=== PATIENT | female | born 1935 | race Two or more races ===

== ENCOUNTER 2023-07-24 17:50 | Inpatient (IN) | payer MEDICARE, OTHER ==
[~2023-07-24] VITALS: Ht 160 cm; Wt 63.2 kg
[2023-07-24 19:01] LABS: Basophils # (auto) 0 10 ^3/uL (0-0.2); Eosinophils # (auto) 0 10 ^3/uL (0-0.8); Hematocrit 33.1 % (36.0-46.0); Lymphocytes # (auto) 0.4 10 ^3/uL (0.4-5.4); Lymphocytes % (auto) 1.8 % (10.0-50.0); Neutrophils # (auto) 17.6 10 ^3/uL (1.6-8.6); Red Blood Cells 4.12 10^6/uL (4.0-5.20)
[2023-07-24 19:03] LABS: Basophils % (auto) 0.2 % (0.0-2.0); Hemoglobin 10.9 g/dL (12.2-16.2); Mean Corpuscular Hemoglobin 26.5 pg (28.0-32.0); Mean Corpuscular Volume 80.5 fL (80.0-100.0); Monocytes # (auto) 2.8 10 ^3/uL (0-1.3); Monocytes % (auto) 13.3 % (0.0-12.0); Neutrophils % (auto) 84.7 % (37.0-80.0); Red Cell Distribution Width 14.7 % (11.8-14.3); White Blood Cell 20.7 10^3/uL (4.4-10.8)
[2023-07-24 19:16] LABS: INR 1.02 (0.9-1.15); Partial Thromboplastin Time 27.5 SEC (24.5-34.5); Prothrombin Time 10.7 sec (9.3-11.8)
[2023-07-24 19:21] LABS: Alanine Aminotransferase 32 U/L (7-40); Albumin 3.2 g/dL (3.2-4.8); Alkaline Phosphatase 123 U/L (46-116); Anion Gap 4 (5-15); Aspartate Aminotransferase 35 U/L (13-40); BUN/Creatinine Ratio 26.2 (10.0-20.0); Bilirubin, Total 1.2 mg/dL (0.2-1.0); Blood Urea Nitrogen 16 mg/dL (9-23); Calcium 8.3 mg/dL (8.7-10.4); Carbon Dioxide 27 mmol/L (20-30); Chloride 99 mmol/L (98-107); Glucose 126 mg/dL (74-106); Potassium 4.2 mmol/L (3.5-5.1); Sodium 130 mmol/L (136-145); Total Protein 5.2 g/dL (5.7-8.2)
[2023-07-24] MEDS: cefTRIAXone 1GM/50ML D5W 50 ML IV ONE (20:00)
[2023-07-24] MEDS: IOHEXOL 350 MG/ML 100ML IJ ONE ×2 (20:42)
[2023-07-24] MEDS: AZITHROMYCIN 500MG/ 250ML 250 ML IV ONE (20:46)
[2023-07-24 22:30] VITALS: PULSE 107; RESP 20; O2SAT 97
[2023-07-24] MEDS: ASPirin 81 mg TAB PO ONE (22:45)
[2023-07-24] MEDS ORDERED: ALBUTEROL SULF 2.5 MG/0.5ML(0.5%) NEB SOLN NEB PRN (23:00)
[2023-07-24] MEDS ORDERED: ONDANSETRON HCL 4 MG/2 ML VIAL IV PRN (23:00)
[2023-07-24] MEDS ORDERED: ACETAMINOPHEN 325 MG TAB PO PRN (23:00)
[2023-07-24 23:16] LABS: Urine Bacteria FEW /hpf (None Seen); Urine Blood 3+ /uL (Negative); Urine Clarity HAZY (Clear); Urine Color Yellow (Yellow); Urine Protein, UAD 1+ (Negative); Urine Specific Gravity > 1.050 (1.001-1.035); Urine WBC 28 /hpf (0 - 5); Urine pH 6.5 (5.0-8.0)
[2023-07-24 23:52] VITALS: BP 140/73; PULSE 107; RESP 20; TEMP 98.2; O2SAT 97
[2023-07-25] VITALS (10 sets, daily range): BP systolic 109–152; BP diastolic 51–90; PULSE 77–114; RESP 14–20; TEMP 97.3–98.2; O2SAT 93–100
[2023-07-25] MEDS ORDERED: APIX2.5T PO (06:25)
[2023-07-25] MEDS ORDERED: ASPI-543 PO (06:25)
[2023-07-25] MEDS ORDERED: OXYB5SOL PO (06:27)
[2023-07-25] MEDS ORDERED: METO25TA93 PO (06:27)
[2023-07-25] MEDS ORDERED: OMEP-434 PO (06:29)
[2023-07-25 07:19] LABS: Basophils # (auto) 0 10 ^3/uL (0-0.2); Eosinophils # (auto) 0 10 ^3/uL (0-0.8); Hemoglobin 10.4 g/dL (12.2-16.2); Lymphocytes # (auto) 0.6 10 ^3/uL (0.4-5.4); Lymphocytes % (auto) 3.6 % (10.0-50.0)
[2023-07-25 07:20] LABS: Basophils % (auto) 0.2 % (0.0-2.0); Hematocrit 31.9 % (36.0-46.0); Mean Corpuscular Hemoglobin 26.4 pg (28.0-32.0); Mean Corpuscular Hgb Conc. 32.4 g/dL (32.0-36.0); Mean Corpuscular Volume 81.4 fL (80.0-100.0); Monocytes # (auto) 2.5 10 ^3/uL (0-1.3); Monocytes % (auto) 14.3 % (0.0-12.0); Neutrophils % (auto) 81.9 % (37.0-80.0); Red Blood Cells 3.92 10^6/uL (4.0-5.20); Red Cell Distribution Width 14.9 % (11.8-14.3); White Blood Cell 17.1 10^3/uL (4.4-10.8)
[2023-07-25 08:36] LABS: COVID19 ANTIGEN SOFIA FIA NEGATIVE (NEGATIVE)
[2023-07-25 08:37] LABS: Rapid Influenza A Negative (Negative); Rapid Influenza B Negative (Negative)
[2023-07-25] MEDS ORDERED: ALBU108A5 INH (09:07)
[2023-07-25] MEDS: METOPROLOL SUCCINATE XL 50 MG TAB PO SCH (10:07)
[2023-07-25] MEDS: ASPirin 81 mg TAB PO SCH (10:07)
[2023-07-25] MEDS: FUROSEMIDE 20 MG TAB PO SCH (10:08)
[2023-07-25] MEDS ORDERED: READI-CAT 2 (BARIUM SULF)(VANILLA SMOOTHIE) 450ML ONE (13:09)
[2023-07-25] MEDS ORDERED: EZ PAQUE SUSP 12OZ BTL ONE (13:10)
[2023-07-25] MEDS ORDERED: EZ-GAS II GRANULES (RADIOLOGY USE) PO ONE (13:10)
[2023-07-25] MEDS ORDERED: GASTROGRAFIN 120 ML SOL ONE (13:27)
[2023-07-25] MEDS: PIPERACILLIN-TAZOB 3.375GM 100 ML IV SCH (14:44)
[2023-07-25] MEDS ORDERED: cefTRIAXone 1GM/50ML D5W 50 ML IV SCH (20:00)
[2023-07-25] MEDS: ATORVASTATIN 20 MG TAB PO SCH (21:30)
[2023-07-25] MEDS: AZITHROMYCIN 500MG/ 250ML 250 ML IV SCH (21:31)
[2023-07-25] MEDS ORDERED: metroNIDAZOLE 500MG/100ML 100 ML IV SCH ×2 (22:00)
[2023-07-26] VITALS (10 sets, daily range): BP systolic 108–157; BP diastolic 54–89; PULSE 85–115; RESP 17–20; TEMP 97.6–98.7; O2SAT 92–98
[2023-07-26] MEDS: metroNIDAZOLE 500MG/100ML 100 ML IV SCH (04:24)
[2023-07-26 06:00] LABS: Basophils # (auto) 0 10 ^3/uL (0-0.2); Eosinophils # (auto) 0.1 10 ^3/uL (0-0.8); Eosinophils % (auto) 0.4 % (0.0-7.0); Lymphocytes # (auto) 0.7 10 ^3/uL (0.4-5.4); Neutrophils # (auto) 11.1 10 ^3/uL (1.6-8.6); Neutrophils % (auto) 79.9 % (37.0-80.0)
[2023-07-26 06:02] LABS: Basophils % (auto) 0.2 % (0.0-2.0); Hematocrit 35.2 % (36.0-46.0); Hemoglobin 11.5 g/dL (12.2-16.2); Lymphocytes % (auto) 4.9 % (10.0-50.0); Mean Corpuscular Hemoglobin 26.6 pg (28.0-32.0); Mean Corpuscular Hgb Conc. 32.8 g/dL (32.0-36.0); Monocytes % (auto) 14.6 % (0.0-12.0); Red Blood Cells 4.35 10^6/uL (4.0-5.20); Red Cell Distribution Width 14.8 % (11.8-14.3); White Blood Cell 13.8 10^3/uL (4.4-10.8)
[2023-07-26 06:09] LABS: Chloride 99 mmol/L (98-107); Potassium 3.7 mmol/L (3.5-5.1)
[2023-07-26 06:10] LABS: Anion Gap 3 (5-15); Carbon Dioxide 33 mmol/L (20-30)
[2023-07-26 06:11] LABS: Calcium 8.9 mg/dL (8.5-10.1)
[2023-07-26 06:15] LABS: Glucose 88 mg/dL (74-106)
[2023-07-26 06:16] LABS: BUN/Creatinine Ratio 21.1 (10.0-20.0); Blood Urea Nitrogen 12 mg/dL (9-23)
[2023-07-26 06:26] LABS: Sodium 135 mmol/L (136-145)
[2023-07-26] MEDS: ENOXAPARIN SOD 40 MG/0.4 ML SYRINGE SC SCH (09:49)
[2023-07-26] MEDS: SACUBITRIL-VALSARTAN 24mg/26mg TAB PO SCH (10:01)
[2023-07-26] MEDS ORDERED: METOCLOPRAMIDE HCL 10 MG TAB PO SCH (12:30)
[2023-07-27] VITALS (10 sets, daily range): BP systolic 110–140; BP diastolic 50–63; PULSE 90–112; RESP 18–20; TEMP 97.8–98.4; O2SAT 92–97
[2023-07-27] MEDS: PIPERACILLIN-TAZOB 3.375GM 100 ML IV SCH ×2 (01:46→17:04)
[2023-07-27 06:24] LABS: Basophils # (auto) 0.2 10 ^3/uL (0-0.2); Basophils % (auto) 1.1 % (0.0-2.0); Eosinophils # (auto) 0.1 10 ^3/uL (0-0.8); Eosinophils % (auto) 0.6 % (0.0-7.0); Hematocrit 36.6 % (36.0-46.0); Hemoglobin 11.6 g/dL (12.2-16.2); Lymphocytes # (auto) 0.6 10 ^3/uL (0.4-5.4); Mean Corpuscular Hemoglobin 25.7 pg (28.0-32.0); Mean Corpuscular Hgb Conc. 31.6 g/dL (32.0-36.0); Mean Corpuscular Volume 81.3 fL (80.0-100.0); Monocytes # (auto) 2.7 10 ^3/uL (0-1.3); Neutrophils # (auto) 11.3 10 ^3/uL (1.6-8.6); Neutrophils % (auto) 76.3 % (37.0-80.0); Red Cell Distribution Width 14.8 % (11.8-14.3); White Blood Cell 14.8 10^3/uL (4.4-10.8)
[2023-07-27 06:49] LABS: Anion Gap 3 (5-15); Carbon Dioxide 32 mmol/L (20-30); Chloride 98 mmol/L (98-107); Potassium 3.8 mmol/L (3.5-5.1); Sodium 133 mmol/L (136-145)
[2023-07-27 06:50] LABS: Calcium 8.3 mg/dL (8.5-10.1)
[2023-07-27 06:55] LABS: BUN/Creatinine Ratio 17.2 (10.0-20.0); Blood Urea Nitrogen 10 mg/dL (9-23); Glucose 89 mg/dL (74-106)
[2023-07-27] MEDS ORDERED: OXYB5TAB14 PO (11:25)
[2023-07-27] MEDS ORDERED: FURO20TA3 PO (11:27)
[2023-07-27] MEDS ORDERED: MICAFUNGIN SODIUM 100 MG in SODIUM CHL 0.9% 100 ML IV SCH (12:00)
[2023-07-27] MEDS: MICAFUNGIN SODIUM 100 MG in SODIUM CHL 0.9% 100 ML IV SCH (16:06)
[2023-07-28] VITALS (12 sets, daily range): BP systolic 111–153; BP diastolic 50–81; PULSE 82–109; RESP 16–20; TEMP 97.8–99.1; O2SAT 91–99
[2023-07-28 05:48] LABS: Hemoglobin 11.3 g/dL (12.2-16.2)
[2023-07-28 05:51] LABS: Hematocrit 34.8 % (36.0-46.0); Mean Corpuscular Hemoglobin 25.9 pg (28.0-32.0); Mean Corpuscular Hgb Conc. 32.3 g/dL (32.0-36.0); Red Blood Cells 4.35 10^6/uL (4.0-5.20); Red Cell Distribution Width 14.9 % (11.8-14.3); White Blood Cell 15.6 10^3/uL (4.4-10.8)
[2023-07-28 05:58] LABS: Basophils % (manual) 0 (0.0-2.0); Blast Cells 0; Promyelocytes % 0; Reactive Lymphocytes 0
[2023-07-28 06:00] LABS: Anion Gap 3 (5-15); Carbon Dioxide 33 mmol/L (20-30); Chloride 100 mmol/L (98-107); Potassium 3.6 mmol/L (3.5-5.1); Sodium 136 mmol/L (136-145)
[2023-07-28 06:01] LABS: Calcium 8.1 mg/dL (8.5-10.1)
[2023-07-28 06:05] LABS: Glucose 105 mg/dL (74-106)
[2023-07-28 06:06] LABS: BUN/Creatinine Ratio 17.2 (10.0-20.0); Blood Urea Nitrogen 10 mg/dL (9-23)
[2023-07-28 07:09] LABS: Band Neutrophils % (manual) 7; Eosinophils % (manual) 4 (0-7); Lymphocytes % (manual) 6 (10.0-50.0); Metamyelocytes % 6; Monocytes % (manual) 16 (0-12); Myelocytes % 3; Platelet Estimate Increased
[2023-07-28] MEDS: SPIRONOLACTONE 25 MG TAB PO SCH (10:16)
[2023-07-28 13:10] LABS: Base Excess 6.6 mmol/L (-2.0-2.0)
[2023-07-28] MEDS ORDERED: METOCLOPRAMIDE HCL 10 MG TAB PO PRN (18:30)
[2023-07-28] MEDS: ALBUTEROL SULF 2.5 MG/0.5ML(0.5%) NEB SOLN NEB SCH (18:47)
[2023-07-28] MEDS: IPRATROPIUM BROM 0.5 MG/2.5ML INH SOL NEB SCH (18:47)
[2023-07-28] MEDS: PANTOPRAZOLE 40 MG TAB PO SCH (21:41)
[2023-07-29] VITALS (10 sets, daily range): BP systolic 113–135; BP diastolic 41–68; PULSE 70–108; RESP 16–22; TEMP 97.5–98.7; O2SAT 90–99
[2023-07-29 06:18] LABS: Basophils # (auto) 0.1 10 ^3/uL (0-0.2); Basophils % (auto) 0.5 % (0.0-2.0); Eosinophils # (auto) 0.3 10 ^3/uL (0-0.8); Eosinophils % (auto) 1.6 % (0.0-7.0); Hematocrit 33.4 % (36.0-46.0); Hemoglobin 10.9 g/dL (12.2-16.2); Lymphocytes % (auto) 5.7 % (10.0-50.0); Mean Corpuscular Hemoglobin 26.4 pg (28.0-32.0); Mean Corpuscular Hgb Conc. 32.6 g/dL (32.0-36.0); Monocytes % (auto) 17.8 % (0.0-12.0); Neutrophils # (auto) 12.4 10 ^3/uL (1.6-8.6); Neutrophils % (auto) 74.4 % (37.0-80.0); Nucleated Red Blood Cells % 0.1 %; Red Blood Cells 4.12 10^6/uL (4.0-5.20); Red Cell Distribution Width 14.9 % (11.8-14.3); White Blood Cell 16.7 10^3/uL (4.4-10.8)
[2023-07-29 06:21] LABS: Chloride 102 mmol/L (98-107); Potassium 3.8 mmol/L (3.5-5.1); Sodium 137 mmol/L (136-145)
[2023-07-29 06:22] LABS: Anion Gap 1 (5-15); Carbon Dioxide 34 mmol/L (20-30)
[2023-07-29 06:23] LABS: Calcium 8.2 mg/dL (8.7-10.4)
[2023-07-29 06:28] LABS: BUN/Creatinine Ratio 19.6 (10.0-20.0); Blood Urea Nitrogen 10 mg/dL (9-23); Glucose 107 mg/dL (74-106)
[2023-07-29] MEDS: METOPROLOL SUCCINATE XL 50 MG TAB PO SCH (09:16)
[2023-07-30] VITALS (15 sets, daily range): BP systolic 108–139; BP diastolic 55–63; PULSE 80–108; RESP 16–24; TEMP 97.6–98.4; O2SAT 92–100
[2023-07-30 06:57] LABS: Hematocrit 34.4 % (36.0-46.0); Mean Corpuscular Hemoglobin 26.1 pg (28.0-32.0); Mean Corpuscular Hgb Conc. 32.2 g/dL (32.0-36.0); Mean Corpuscular Volume 81.2 fL (80.0-100.0); Red Blood Cells 4.23 10^6/uL (4.0-5.20); Red Cell Distribution Width 14.8 % (11.8-14.3); White Blood Cell 14.8 10^3/uL (4.4-10.8)
[2023-07-30 07:01] LABS: Basophils % (manual) 0 (0.0-2.0); Blast Cells 0; Eosinophils % (manual) 0 (0-7); Metamyelocytes % 0; Myelocytes % 0; Promyelocytes % 0; Reactive Lymphocytes 0
[2023-07-30 07:21] LABS: Anion Gap 1 (5-15); Carbon Dioxide 34 mmol/L (20-30); Chloride 104 mmol/L (98-107); Potassium 3.9 mmol/L (3.5-5.1); Sodium 139 mmol/L (136-145)
[2023-07-30 07:22] LABS: Calcium 8.4 mg/dL (8.5-10.1)
[2023-07-30 07:27] LABS: Glucose 91 mg/dL (74-106)
[2023-07-30 07:40] LABS: Blood Urea Nitrogen 8 mg/dL (9-23)
[2023-07-30 09:37] LABS: Band Neutrophils % (manual) 5; Lymphocytes % (manual) 8 (10.0-50.0); Monocytes % (manual) 18 (0-12)
[2023-07-30 09:38] LABS: Platelet Estimate Increased
[2023-07-31] VITALS (14 sets, daily range): BP systolic 120–158; BP diastolic 56–70; PULSE 8–95; RESP 16–20; TEMP 36.7; O2SAT 93–100
[2023-07-31] MEDS: MICAFUNGIN SODIUM 100 MG in SODIUM CHL 0.9% 100 ML IV SCH (05:29)
[2023-07-31] MEDS ORDERED: AUG875T PO (13:56)
[2023-07-31] MEDS ORDERED: METO5TAB67 PO (13:56)
== END 2023-07-31 19:55 | disposition home or self-care (01) | DRG 871 ==
LOC: ER 17:50 → EDBD 17:50 → OVERFLOW 23:05 → WEST WING 07-25 02:45
PROVIDERS: ADMIT Nurse Practitioner; ATTEND Nurse Practitioner Acute Care
DX: A41.9 Sepsis, unspecified organism (principal); I21.A1 Myocardial infarction type 2; J69.0 Pneumonitis due to inhalation of food and vomit; I50.23 Acute on chronic systolic (congestive) heart failure; J96.01 Acute respiratory failure with hypoxia; J18.9 Pneumonia, unspecified organism; N39.0 Urinary tract infection, site not specified; E87.1 Hypo-osmolality and hyponatremia; J44.0 Chronic obstructive pulmonary disease with (acute) lower respiratory infection; Z20.822 Contact with and (suspected) exposure to COVID-19; I11.0 Hypertensive heart disease with heart failure; K22.89 Other specified disease of esophagus; Z86.718 Personal history of other venous thrombosis and embolism; Z80.8 Family history of malignant neoplasm of other organs or systems; Z80.3 Family history of malignant neoplasm of breast; Z80.0 Family history of malignant neoplasm of digestive organs
CPT/HCPCS: 36415; 36600; 71045; 71275; 74220; 80048; 80053; 81001; 82270; 82805; 83605; 83880; 84484; 85007; 85025; 85027; 85610; 85730; 87040; 87070; 87077; 87081; 87205; 87426; 87493; 87804; 92507; 92610; 93005; 93306; 94640; 96365; 96367; 97110; 97116; 97163; 97530; 99291; G0378; J2248; J2543; J3490

== ENCOUNTER 2024-03-27 14:34 | Inpatient (IN) | payer MEDICARE, OTHER ==
[~2024-03-27] VITALS: Ht 139.7 cm; Wt 59.9 kg
[~2024-03-27 14:34] MED LIST: ALBU108A5 INH; APIX2.5T PO; ASPI-543 PO; AUG875T PO; FURO20TA3 PO; METO25TA93 PO; METO5TAB67 PO; OMEP-434 PO; OXYB5TAB14 PO
--- NOTE | 2024-03-27 14:50 | ED.PDOC ---
History of Present Illness HPI Comments 88-year-old female with PMHx Breast CA, HTN, Diverticulitis presents with a chief complaint of headache x 1 day. Patient states that she has a throbbing headache that has been present for the past day. Patient reports that the pain is localized to her right temporal region. Patient rates her pain a 10/10. Rodriguez longoria denies any nausea, vomiting, diarrhea, or SOB. Patient mentions that she did not have a fall or any trauma prior to onset of symptoms. No other symptoms or modifying factors present at this time. Time Seen by MD: 14:41 Primary Care Provider: SHENG Reviewed Notes: Nurses Notes, Medications, Allergies Allergies: Coded Allergies: NO KNOWN ALLERGIES (Unverified , 07/24/23) Home Meds Active Scripts Metoclopramide Hcl (Reglan) 5 Mg Tab, 5 MG PO AC for 30 Days, #90 TAB Prov:RADHA HURST VACUUM EXTRACTOR OPERATOR 07/31/23 Amoxicillin & Pot Clavulanate (AUGMENTIN TABLET) 875 Mg Tb, 875 MG PO BID for 7 Days, #14 TAB Prov:RADHA HURST VACUUM EXTRACTOR OPERATOR 07/31/23 Reported Medications Furosemide (Furosemide) 20 Mg Tab, 1 TAB PO DAILY 07/27/23 Oxybutynin Chloride (Oxybutynin Chloride) 5 Mg Tab, 1 TAB PO DAILY 07/27/23 Albuterol Sulfate (Albuterol Sulfate Hfa) 108 Mcg/Act Aer, 2 PUFF INH Q6HR PRN for SHORTNESS OF BREATH 07/25/23 Omeprazole Magnesium (Omeprazole) 20 Mg Tab, 20 MG PO DAILY@BREAKFAST, TAB 07/25/23 Metoprolol Succinate (Metoprolol Succinate Er) 25 Mg Tab, 1 TAB PO DAILY, #30 TAB 5 Refills 07/25/23 Aspirin (Aspir-Low) 81 Mg Tab, 81 MG PO DAILY for 30 Days, MG 07/25/23 Apixaban Base (ELIQUIS) 2.5 Mg Tab, 2.5 MG PO DAILY, TAB 07/25/23 Information Source: Patient Mode of Arrival: Ambulatory Severity: Moderate Timing: Days Duration: Since onset Prehospital treatment: None Past Medical History PAST MEDICAL HISTORY: Cancer (BREAST CANCER), COPD, HTN Past Medical History (Other): DIVERTICULITIS Surgical History: Hysterectomy, Tonsillectomy Surgical History (Other): RIGHT MASTECTOMY, CATARACTS, COLON RESECTION WATER ATTENDANT History: Denies all WATER ATTENDANT Hx Family History Family History: Reviewed,noncontributory to illness Social History Smoker: Non-Smoker Alcohol: Denies ETOH Use Drugs: Denies Drug Use Lives In: Home Constitutional: denies: chills, diaphoresis, fatigue, fever, malaise, sweats, weakness, others EENTM: denies: blurred vision, double vision, ear bleeding, ear discharge, ear drainage, ear pain, ear ringing, eye pain, eye redness, hearing loss, mouth pain, mouth swelling, nasal discharge, nose bleeding, nose congestion, nose pain, photophobia, tearing, throat pain, throat swelling, voice changes, others Respiratory: denies: cough, hemoptysis, orthopnea, SOB at rest, shortness of breath, SOB with excertion, stridor, wheezing, others Cardiovascular: denies: chest pain, dizzy spells, diaphoresis, Dyspnea on exertion, edema, irregular heart beat, left arm pain, lightheadedness, palpitations, PND, syncope, others Gastrointestinal: denies: abdomen distended, abdominal pain, blood streaked bowels, constipated, diarrhea, dysphagia, difficulty swallowing, hematemesis, me mgean, nausea, poor appetite, poor fluid intake, rectal bleeding, rectal pain, vomiting, others Genitourinary: denies: abnormal vagina bleeding, burning, dyspareunia, dysuria, flank pain, frequency, hematuria, incontinence, pain, , vagina discharge, urgency, others Neurological: reports: headache; denies: dizziness, fainting, left sided numbness, left sided weakness, numbness, paresthesia, pre-existing deficit, right sided numbness, right sided weakness, seizure, speech problems, tingling, tremors, weakness, others Musculoskeletal: denies: back pain, gout, joint pain, joint swelling, muscle pain, muscle stiffness, neck pain, others Integumetry: denies: bruises, change in color, change in hair/nails, dryness, laceration, lesions, lumps, rash, wounds, others Allergic/Immunocompromised: denies: Difficulty Healing, Frequent Infections, Hives, Itching, others Hematologic/Lymphatic: denies: anemia, blood clots, easy bleeding, easy bruising, swollen glands, others Endocrine: denies: excessive hunger, excessive sweating, excessive thirst, excessive urination, flushing, intolerance to cold, intolerance to heat, unexplained weight gain, unexplained weight loss, others Psychiatric: denies: anxiety, bipolar disorder, depression, hopeless, panic disorder, schizophrenia, sleepless, suicidal, others All Other Systems: Reviewed and Negative Physical Exam General Appearance: Moderate Distress HEENT: Normal ENT Inspection, Pharynx Normal, TMs Normal Neck: Full Range of Motion, Non-Tender, Normal, Normal Inspection Respiratory: Chest Non-Tender, Lungs Clear, No Accessory Muscle Use, No Respiratory Distress, Normal Breath Sounds Cardiovascular: No Edema, No JVD, No Murmur, No Gallop, Normal Peripheral Pulses, Regular Rate/Rhythm Breast Exam: Deferred Gastrointestinal: No Organomegaly, Non Tender, No Pulsatile Mass, Normal Bowel Sounds, Soft Genitalia: Deferred Pelvic: Deferred Rectal: Deferred Extremities: No calf tenderness, Normal capillary refill, Normal inspection, Normal range of motion, Non-tender, No pedal edema Musculoskeletal : Apperance: Normal Neurologic: Alert, die developer II-XII nml as Tested, Motor Weakness, Normal Affect, Normal Mood, No Sensory Deficits Cerebellar Function: Normal Reflexes: Normal Skin: Dry, Normal Color, Warm Lymphatic: No Adenopathy Was a procedure done? Was a procedure done?: No Differential Dx Considerations may include: CVA, migraine headache, generalized weakness, electrolyte imbalance X-Ray, Labs, Meds, VS Vital Signs Date Time Temp Pulse Resp B/P (MAP) Pulse Ox O2 Delivery O2 Flow Rate FiO2 03/27/24 14:54 98.7 77 18 134/66 (88) 95 Lab Test 03/27/24 15:59 03/27/24 15:36 Range/Units Urine Color Light-yellow Yellow Urine Clarity Clear Clear Urine pH 6.0 5.0-9.0 Urine Specific [place] 1.020 1.001-1.035 Urine Protein Negative Negative Urine Ketones Negative Negative Urine Blood 1+ H Negative /uL Urine Nitrite Negative Negative Urine Bilirubin Negative Negative Urine Urobilinogen Normal Negative mg/dL Urine Leukocyte Esterase 1+ Negative /uL Urine RBC 4 0 - 4 /hpf Urine WBC 4 0 - 5 /hpf Urine Squamous Epithelial Cells Few <5 /hpf Urine Bacteria None seen None Seen /hpf Urine Glucose Normal Normal mg/dL White Blood Count 14.5 H 4.4-10.8 10^3/uL Red Blood Count 5.01 4.0-5.20 10^6/uL Hemoglobin 13.4 12.2-16.2 g/dL Hematocrit 40.5 36.0-46.0 % Mean Corpuscular Volume 80.8 80.0-100.0 fL Mean Corpuscular Hemoglobin 26.8 L 28.0-32.0 pg Mean Corpuscular Hemoglobin Concent 33.1 32.0-36.0 g/dL Red Cell Distribution Width 15.8 H 11.8-14.3 % Platelet Count 279 140-450 10^3/uL Mean Platelet Volume 8.2 6.9-10.8 fL Neutrophils (%) (Auto) 81.7 H 37.0-80.0 % Lymphocytes (%) (Auto) 4.4 L 10.0-50.0 % Monocytes (%) (Auto) 13.0 H 0.0-12.0 % Eosinophils (%) (Auto) 0.4 0.0-7.0 % Basophils (%) (Auto) 0.5 0.0-2.0 % Neutrophils # (Auto) 11.8 H 1.6-8.6 10 ^3/uL Lymphocytes # (Auto) 0.6 0.4-5.4 10 ^3/uL Monocytes # (Auto) 1.9 H 0-1.3 10 ^3/uL Eosinophils # (Auto) 0.1 0-0.8 10 ^3/uL Basophils # (Auto) 0.1 0-0.2 10 ^3/uL Nucleated Red Blood Cells 0.0 % Sodium Level 138 136-145 mmol/L Potassium Level 3.9 3.5-5.1 mmol/L Chloride Level 105 98-107 mmol/L Carbon Dioxide Level 28 20-31 mmol/L Anion Gap 5 5-15 Blood Urea Nitrogen 20 9-23 mg/dL Creatinine 0.89 0.550-1.02 mg/dL Glomerular Filtration Rate Calc 62 >90 mL/min BUN/Creatinine Ratio 22.5 H 10.0-20.0 Serum Glucose 89 74-106 mg/dL Calcium Level 9.2 8.7-10.4 mg/dL Troponin I High Sensitivity 6 </=34 ng/L Head CT Scan Impression: Subtle hypodense focus of the right anterior thalamus with hypodense focus of the left inferior basal ganglia which may represent lacunar infarcts of unknown chronicity. MRI would be helpful for further evaluation. Mucous retention cysts within the right maxillary sinus with minimal mucoperiosteal thickening of the ethmoid air cells. At this time the patient was being admitted to the hospitalist The CBC shows an elevated white blood cell count of 14.5 The chemistry panel is within normal limits The urine test is positive for UTI The patient was being given Rocephin 1 g IV piggyback for the UTI The patient was being admitted Images Reviewed?: Images reviewed and evaluated by me Time of 1ST Reevaluation: 15:11 Reevaluation 1ST: Unchanged Time of 2ND Reevaluation: 18:23 Reevaluation 2ND: Unchanged Patient Education/Counseling: Diagnosis, Treatment, Prognosis Family Education/Counseling: Diagnosis, Treatment, Prognosis Departure 1 Departure Time of Disposition: 18:23 Impression: Primary Impression: Generalized weakness Additional Impression: Headache Qualified Codes: R51.9 - Headache, unspecified Disposition: 09 ADMITTED INPATIENT Admit to: [facility] Condition: Fair Critical Care Note Critical Care Time?: Yes (35 min-critical care time only) Stability Stability form required: Yes Unstable for transfer: Telemetry monitoring (Telemetry monitoring required), ED Physician Assesment (Clinical assesment) Heart Score Heart Score: Heart Score Response (Comments) Value History N/A 0 EKG N/A 0 Age N/A 0 Risk Factors N/A 0 Troponin N/A 0 Total 0 I personally scribed for HOLLY SCOTT MD ([email or web address]) on 03/27/24 at 14:50. Electronically submitted by Josef Singh ([email or web address]). I personally scribed for HOLLY SCOTT MD ([email or web address]) on 03/27/24 at 15:20. Electronically submitted by Josef Singh ([email or web address]). HOLLY SCOTT MD Mar 27, 2024 14:50
--- NOTE | 2024-03-27 15:18 | DVH ---
Procedure: CT HEAD WITHOUT CONTRAST Study Date and Requested Time: 03/27/2024 02:50 PM History: right sided CARDENAS Comparison: None Dose: CTDI: 52.6 mGy DLP: 1036.67 mGycm Technique: Multiplanar images obtained through the brain without intravenous contrast. Findings: There is moderate diffuse brain atrophy. Mild to moderate chronic small vessel ischemic changes. Subt le hypodense focus of the right anterior thalamus with hypodense focus of the left inferior basal rohit glia. No hemorrhages, masses, mass effect, midline shift, herniation or cytotoxic edema following a large v ascular territory. No evidence of hydrocephalus. The basal cisterns are patent. The pituitary gland, sella and parasellar regions are unremarkable. The cerebellar tonsils are in nor mal position. The cerebellum is unremarkable. [id number]-pont-right anterolateral posterior fossa p rominent CSF space which may be associated with atrophy versus arachnoid cysts. There is bilateral lens replacement. Otherwise, orbits and globes are unremarkable. Mucous retention cysts within the right maxillary sinus with mild mucoperiosteal thickening of the ethmoid air cells. Otherwise, the paranasal sinuses and mastoids are clear. There are no worrisome calvarial lesions. Impression: Subtle hypodense focus of the right anterior thalamus with hypodense focus of the left inferior basal ganglia which may represent lacunar infarcts of unknown chronicity. MRI would be helpful for further evaluation. Mucous retention cysts within the right maxillary sinus with minimal mucoperiosteal thickening of the ethmoid air cells.
[2024-03-27 15:58] LABS: Chloride 105 mmol/L (98-107); Potassium 3.9 mmol/L (3.5-5.1); Sodium 138 mmol/L (136-145)
[2024-03-27 15:59] LABS: Anion Gap 5 (5-15); Calcium 9.2 mg/dL (8.7-10.4); Carbon Dioxide 28 mmol/L (20-31)
[2024-03-27 16:00] LABS: Urine Bacteria None Seen /hpf (None Seen)
[2024-03-27 16:04] LABS: BUN/Creatinine Ratio 22.5 (10.0-20.0); Blood Urea Nitrogen 20 mg/dL (9-23); Glucose 89 mg/dL (74-106)
[2024-03-27 16:26] LABS: Basophils # (auto) 0.1 10 ^3/uL (0-0.2); Basophils % (auto) 0.5 % (0.0-2.0); Eosinophils # (auto) 0.1 10 ^3/uL (0-0.8); Eosinophils % (auto) 0.4 % (0.0-7.0); Hematocrit 40.5 % (36.0-46.0); Hemoglobin 13.4 g/dL (12.2-16.2); Lymphocytes # (auto) 0.6 10 ^3/uL (0.4-5.4); Lymphocytes % (auto) 4.4 % (10.0-50.0); Mean Corpuscular Hemoglobin 26.8 pg (28.0-32.0); Mean Corpuscular Hgb Conc. 33.1 g/dL (32.0-36.0); Mean Corpuscular Volume 80.8 fL (80.0-100.0); Monocytes # (auto) 1.9 10 ^3/uL (0-1.3); Neutrophils # (auto) 11.8 10 ^3/uL (1.6-8.6); Neutrophils % (auto) 81.7 % (37.0-80.0); Platelet Count (auto) 279 10^3/uL (140-450); Red Blood Cells 5.01 10^6/uL (4.0-5.20); Red Cell Distribution Width 15.8 % (11.8-14.3); White Blood Cell 14.5 10^3/uL (4.4-10.8)
[2024-03-27] MEDS ORDERED: ZOLPIDEM TARTRATE 5 MG TAB PO PRN (16:30)
[2024-03-27] MEDS ORDERED: ONDANSETRON HCL 4 MG/2 ML VIAL IV PRN (16:30)
[2024-03-27] MEDS: MAALOX PLUS or MAALOX 30 ML PO ONE (16:50)
[2024-03-27] MEDS: LORazepam 0.5 MG TAB PO PRN (16:51)
[2024-03-27] MEDS: ACETAMINOPHEN 325 MG TAB PO PRN (16:51)
--- NOTE | 2024-03-27 16:51 | DVHHP2 ---
History of Present Illness Reason for Visit: Headache History of Present Illness 88-year-old female with a past medical history of breast cancer, hypertension, diverticulitis comes into the ED for evaluation of stated headache for the past week patient has stated that the headache is described as a 02/07 CT head was completed in the ED did show acute changes or possibly subacute changes chronicity is unconfirmed with possible stroke versus TIA issues patient does have a stroke history and takes several medications including Eliquis for the management however unconfirmed if the CT head is showing what is causing patient's current headache as of now patient will be admitted for further evaluation Heme/Onc: Cancer Review of Systems Constitutional: Yes: Weakness; No: Fever, Chills, Sweats, Malaise, Other Eyes: No: Pain, Vision change, Conjunctivae inflammation, Eyelid inflammation, Other, Redness ENT: No: Ear pain, Ear discharge, Nose pain, Nose discharge, Nose congestion, Mouth pain, Mouth swelling, Throat pain, Throat swelling, Other Respiratory: No: Cough, Dry, Shortness of breath, SOB with excertion, Wheezing, Hemoptysis, Pleuritic Pain, Sputum, Wheezing, Other Cardiovascular: No: Chest Pain, Palpitations, Orthopnea, Paroxysmal Noc. Dyspnea, Edema, Lt Headedness, Other Gastrointestinal: No: Nausea, Vomiting, Abdominal Pain, Diarrhea, Constipation, Melena, Hematochezia, Other Genitourinary: No Dysuria, No Frequency, No Incontinence, No Hematuria, No Retention, No Other Musculoskeletal: No: other, neck pain, shoulder pain, arm pain, back pain, hand pain, leg pain, foot pain Skin: No: Rash, Lesions, Jaundice, Bruising, Other Neurological: No: Weakness, Numbness, Incoordination, Change in speech, Confusion, Seizures, Other Allergies: Coded Allergies: NO KNOWN ALLERGIES (Unverified , 07/24/23) Medications Current Medications Medications Dose Ordered Sig/Tariq Route Start Time Stop Time Status Last Admin Dose Admin Furosemide 20 mg DAILY PO 03/28/24 10:00 Oxybutynin Chloride 5 mg DAILY PO 03/28/24 10:00 Metoclopramide HCl 5 mg AC PO 03/27/24 17:00 Metoprolol Succinate 25 mg HS PO 03/27/24 22:00 Pantoprazole Sodium 40 mg DAILY@BREAKFAST PO 03/28/24 08:00 Apixaban 5 mg BID PO 03/27/24 22:00 Atorvastatin Calcium 40 mg HS PO 03/27/24 22:00 Acetaminophen 650 mg Q6HP PRN PO 03/27/24 16:30 Zolpidem Tartrate 5 mg QHSP PRN PO 03/27/24 16:30 Lorazepam 0.5 mg Q6HP PRN PO 03/27/24 16:30 Docusate Sodium 100 mg DAILY PO 03/28/24 10:00 Ondansetron HCl 4 mg Q4HP PRN IV 03/27/24 16:30 Lisinopril 10 mg DAILY PO 03/28/24 10:00 Exam Vital Signs Vital Signs Date Time Temp Pulse Resp B/P (MAP) Pulse Ox O2 Delivery O2 Flow Rate FiO2 03/27/24 14:54 98.7 77 18 134/66 (88) 95 General Appearance: Alert, mild distress HEENT: Atraumatic, PERRLA Respiratory: Clear to auscultation, Normal air movement Cardiovascular: Regular rate, Normal S2 Abdominal: Normal bowel sounds, Soft Extremities: No clubbing, No cyanosis Skin: No rashes, No breakdown Neuro: Normal gait, Normal speech Psych/Mental Status: Mood NL Labs/Xrays Labs Test 03/27/24 15:59 03/27/24 15:36 Range/Units White Blood Count 14.5 H 4.4-10.8 10^3/uL Red Blood Count 5.01 4.0-5.20 10^6/uL Hemoglobin 13.4 12.2-16.2 g/dL Hematocrit 40.5 36.0-46.0 % Mean Corpuscular Volume 80.8 80.0-100.0 fL Mean Corpuscular Hemoglobin 26.8 L 28.0-32.0 pg Mean Corpuscular Hemoglobin Concent 33.1 32.0-36.0 g/dL Red Cell Distribution Width 15.8 H 11.8-14.3 % Platelet Count 279 140-450 10^3/uL Mean Platelet Volume 8.2 6.9-10.8 fL Neutrophils (%) (Auto) 81.7 H 37.0-80.0 % Lymphocytes (%) (Auto) 4.4 L 10.0-50.0 % Monocytes (%) (Auto) 13.0 H 0.0-12.0 % Eosinophils (%) (Auto) 0.4 0.0-7.0 % Basophils (%) (Auto) 0.5 0.0-2.0 % Neutrophils # (Auto) 11.8 H 1.6-8.6 10 ^3/uL Lymphocytes # (Auto) 0.6 0.4-5.4 10 ^3/uL Monocytes # (Auto) 1.9 H 0-1.3 10 ^3/uL Eosinophils # (Auto) 0.1 0-0.8 10 ^3/uL Basophils # (Auto) 0.1 0-0.2 10 ^3/uL Nucleated Red Blood Cells 0.0 % Sodium Level 138 136-145 mmol/L Potassium Level 3.9 3.5-5.1 mmol/L Chloride Level 105 98-107 mmol/L Carbon Dioxide Level 28 20-31 mmol/L Anion Gap 5 5-15 Blood Urea Nitrogen 20 9-23 mg/dL Creatinine 0.89 0.550-1.02 mg/dL Glomerular Filtration Rate Calc 62 >90 mL/min BUN/Creatinine Ratio 22.5 H 10.0-20.0 Serum Glucose 89 74-106 mg/dL Calcium Level 9.2 8.7-10.4 mg/dL Assessment/Plan Assessment/Plan Admit to [facility] Headache Rule out acute TIA versus CVA CT scan was done showing patient with hypodensity in the left inferior basal ganglia Suspected lacunar infarcts likely chronic Patient with headaches no acute signs of hemodynamic instability Follow with standard stroke protocol Carotid Dopplers if carotid Dopplers positive We will evaluate with CTA of head and neck if required MRI as per inpatient providers preferences History of hypertension Continue with home medication Continue with beta-blockers metoprolol 25 mg b.i.d. Continue with anticoagulation apixaban 2.5 mg daily We will change and upgrade medication to 5 mg b.i.d. in the setting of a possible CVA CTA head completed no acute signs of hemorrhage We will continue anticoagulation at this point in time Continue with home medication Lasix 20 mg daily History of breast cancer No acute setting of breast cancer exacerbation at this point in time Patient has having headaches No stated history of currently being on chemotherapy Plan discussed with: Patient My Orders Orders - BRANDON RIVERA MD Procedure Category Date Status Time Furosemide Tablet PHA 03/28/24 In Process (Lasix Tablet) 10:00 Oxybutynin Chloride PHA 03/28/24 In Process Tablet (Ditropan Tab 10:00 Metoclopramide Tablet PHA 03/27/24 In Process (Reglan Tablet) 17:00 Pantoprazole Tablet PHA 03/28/24 In Process (Protonix Tablet) 08:00 Apixaban (Eliquis) PHA 03/27/24 In Process 22:00 Admit ADMIT 03/27/24 Transmitted 16:18 Code Status CODE 03/27/24 Transmitted 16:18 Vital Signs ANKUR 03/27/24 In Process 16:18 Cardiac DIET 03/27/24 Transmitted Diet-2gna,Lofat,Lochol Dinner Atorvastatin (Lipitor) PHA 03/27/24 In Process 22:00 Acetaminophen Tablet PHA 03/27/24 In Process (Tylenol Tablet) 16:30 Zolpidem Tartrate PHA 03/27/24 In Process (Ambien) 16:30 Lorazepam Tablet PHA 03/27/24 In Process (Ativan Tablet) 16:30 Docusate Sodium PHA 03/28/24 In Process Capsule (Colace 10:00 Basic Metabolic Panel LAB 03/28/24 Verified 04:00 Ondansetron Hcl PHA 03/27/24 In Process (Zofran) 16:30 Electrocardigram EKG 03/27/24 Logged 16:18 Troponin-I Hs LAB 03/27/24 In Process 16:18 Lisinopril Tablet PHA 03/28/24 In Process (Zestril Tablet) 10:00 Cardiac ANKUR 03/27/24 In Process Rehabilitation - Outpa Notify Md Of Changes ANKUR 03/27/24 In Process From Base 16:18 Oxygen By Nasal RT 03/27/24 Transmitted Cannula 16:18 Electrocardigram EKG 03/27/24 Logged 19:18 Carotid Duplx W Color US 03/27/24 Logged DOP 16:30 Metoprolol Xl PHA 03/27/24 In Process Succinate (Toprol Xl) 22:00 Problem List: (1) HTN (hypertension) (2) CVA (cerebral vascular accident) Date of Service: Mar 27, 2024 Billing Provider: BRANDON RIVERA MD Common Visit Codes: [id number] INP/OBS CARE (HIGH) BRANDON RIVERA MD Mar 27, 2024 16:51
[2024-03-27] MEDS: METOCLOPRAMIDE HCL 10 MG TAB PO SCH (16:53)
[2024-03-27 17:46] LABS: Urine Blood 1+ /uL (Negative); Urine Clarity Clear (Clear); Urine Color Light-Yellow (Yellow); Urine Protein, UAD Negative (Negative); Urine Urobilinogen Normal (Negative); Urine WBC 4 /hpf (0 - 5)
--- NOTE | 2024-03-27 17:51 | DVH ---
Carotid Duplex Date: 03/27/2024 05:09 PM Clinical History: stroke evaluation Comparison: Same-day CT brain Technique: Duplex Doppler evaluation of the extracranial carotid and vertebral arteries including color Doppler and spectral/pulsed waveform analysis was performed. Findings: RIGHT SIDE: Mixed atherosclerotic plaque at the right carotid bulb proximal right ICA causing less than 50% steno sis by grayscale measurement. The peak systolic velocities are 95 cm/s in the distal CCA and 87 cm/s in the proximal ICA.The ICA/CC A ratio is less than 1. The external carotid artery is patent with peak systolic velocity of 90 cm/s proximally. There is appropriate antegrade flow in the right vertebral artery. LEFT SIDE: Mixed atherosclerotic plaque at the left carotid bulb proximal left ICA causing less than 50% stenosi s by grayscale measurement. The peak systolic velocities are 57 cm/s in the distal CCA and 108 cm/s in the proximal ICA.. The IC A/CCA ratio is less than 2. The external carotid artery is patent with peak systolic velocity of 121 cm/s proximally. There is appropriate antegrade flow in the left vertebral artery. IMPRESSION: 1. No hemodynamically significant stenosis noted in the right carotid system. 2. No hemodynamically significant stenosis noted in the left carotid system. 3. Reference: Radiology 2003; [id number] HS:Y
[2024-03-27] MEDS: METOPROLOL SUCCINATE XL 50 MG TAB PO SCH (22:00)
[2024-03-27] MEDS: APIXABAN 5 MG TAB PO SCH (22:03)
[2024-03-27] MEDS: ATORVASTATIN 20 MG TAB PO SCH (22:03)
[2024-03-28] VITALS (8 sets, daily range): BP systolic 119–154; BP diastolic 47–92; PULSE 55–97; RESP 13–20; TEMP 97.7–98.6; O2SAT 93–98
[2024-03-28 05:43] LABS: Potassium 3.7 mmol/L (3.5-5.1); Sodium 143 mmol/L (136-145)
[2024-03-28 05:44] LABS: Anion Gap 7 (5-15); Calcium 8.9 mg/dL (8.7-10.4); Carbon Dioxide 29 mmol/L (20-31)
[2024-03-28 05:49] LABS: BUN/Creatinine Ratio 24.3 (10.0-20.0); Blood Urea Nitrogen 18 mg/dL (9-23); Glucose 86 mg/dL (74-106)
[2024-03-28 05:51] LABS: Chloride 107 mmol/L (98-107)
[2024-03-28] MEDS: cefTRIAXone 1GM/50ML D5W 50 ML IV SCH (08:30)
[2024-03-28] MEDS: PANTOPRAZOLE 40 MG TAB PO SCH (08:30)
[2024-03-28] MEDS: OXYBUTYNIN CHL 5 MG TAB PO SCH (09:59)
[2024-03-28] MEDS: LISINOPRIL 5 MG TAB PO SCH (10:00)
[2024-03-28] MEDS: FUROSEMIDE 20 MG TAB PO SCH (10:00)
[2024-03-28] MEDS: DOCUSATE SOD 100 MG CAP PO SCH (10:00)
[2024-03-28 13:29] LABS: Urine Bacteria None Seen /hpf (None Seen)
--- NOTE | 2024-03-28 13:37 | DVHPN2 ---
Subjective Headache {Jabs} on and off x [address] head shows possible stroke Changes from previous H/P or p: Changes Eyes: No Pain, No Vision change, No Conjunctivae inflammation, No Eyelid inflammation, No Other, No Redness ENT: No Ear pain, No Ear discharge, No Nose pain, No Nose discharge, No Nose congestion, No Mouth pain, No Mouth swelling, No Throat pain, No Throat swelling, No Other Cardiovascular: No Chest Pain, No Palpitations, No Orthopnea, No Paroxysmal Noc. Dyspnea, No Edema, No Lt Headedness, No Other Respiratory: No Cough, No Dry, No Shortness of breath, No SOB with excertion, No Wheezing, No Hemoptysis, No Pleuritic Pain, No Sputum, No Other Gastrointestinal: No Nausea, No Vomiting, No Abdominal Pain, No Diarrhea, No Constipation, No Melena, No Hematochezia, No Other Genitourinary: No Dysuria, No Frequency, No Incontinence, No Hematuria, No Retention, No Other Musculoskeletal: No other, No neck pain, No shoulder pain, No arm pain, No back pain, No hand pain, No leg pain, No foot pain Skin: No Rash, No Lesions, No Jaundice, No Bruising, No Other Objective Vitals Vital Signs Date Time Temp Pulse Resp B/P (MAP) Pulse Ox O2 Delivery O2 Flow Rate FiO2 03/28/24 12:00 92 25 137/52 (80) 94 03/28/24 07:40 Room Air* 0 21 03/28/24 07:40 97.9 97.9 General Appearance: Alert Lungs: Clear to auscultation, Normal air movement Cardiovascular: Regular rate, Normal S1, Normal S2, Other (systolic murmur) Abdomen: Normal bowel sounds, Soft, No tenderness Extremities: No edema Medications Current Medications Medications Dose Ordered Sig/Tariq Route Start Time Stop Time Status Last Admin Dose Admin Furosemide 20 mg DAILY PO 03/28/24 10:00 Oxybutynin Chloride 5 mg DAILY PO 03/28/24 10:00 03/28/24 09:59 5 MG Metoclopramide HCl 5 mg AC PO 03/27/24 17:00 03/28/24 06:58 5 MG Metoprolol Succinate 25 mg HS PO 03/27/24 22:00 Pantoprazole Sodium 40 mg DAILY@BREAKFAST PO 03/28/24 08:00 03/28/24 08:30 40 MG Apixaban 5 mg BID PO 03/27/24 22:00 03/28/24 09:59 5 MG Atorvastatin Calcium 40 mg HS PO 03/27/24 22:00 03/27/24 22:03 40 MG Acetaminophen 650 mg Q6HP PRN PO 03/27/24 16:30 03/27/24 16:51 650 MG Zolpidem Tartrate 5 mg QHSP PRN PO 03/27/24 16:30 Lorazepam 0.5 mg Q6HP PRN PO 03/27/24 16:30 03/27/24 16:51 0.5 MG Docusate Sodium 100 mg DAILY PO 03/28/24 10:00 Ondansetron HCl 4 mg Q4HP PRN IV 03/27/24 16:30 Lisinopril 10 mg DAILY PO 03/28/24 10:00 03/28/24 10:00 10 MG Ceftriaxone Sodium 50 ml @ 100 mls/hr DAILY@09 IV 03/28/24 09:00 03/28/24 08:30 100 MLS/HR Laboratory Results Laboratory Tests 03/27/24 15:36 03/28/24 05:19 Chemistry Test 03/27/24 15:36 03/28/24 05:19 Calcium Level 9.2 mg/dL (8.7-10.4) 8.9 mg/dL (8.7-10.4) Urinalysis Test 03/28/24 06:40 Urine Color Pending Urine Clarity Pending Urine pH Pending Urine Specific [place] Pending Urine Protein Pending Urine Ketones Pending Urine Blood Pending Urine Nitrite Pending Urine Bilirubin Pending Urine Urobilinogen Pending Urine Leukocyte Esterase Pending Urine RBC Pending Urine WBC Pending Urine Squamous Epithelial Cells Pending Urine Bacteria Pending Urine Glucose Pending Assessment/Plan Assessment/Plan Headache Rule out stroke HTN h/o breast CA LLE DVT on Eliquis h/o diverticulosis h/o colostomy and reversal many years ago UTI PLAN: Aspirin MRI brain Echo Carotid US: Neg Continue Eliquis Discussed with caregiver at the bedside and daughter over the phone Full code Rocephin Plan discussed with: Patient, Daughter My Orders Orders - FILIBERTO AGUIRRE MD Procedure Category Date Status Time Brain Head Wo Contrast MRI 03/28/24 Logged 13:10 Echo 2d Mode Cardiac US 03/28/24 Logged DOP 13:28 Date of Service: Mar 28, 2024 Billing Provider: FILIBERTO AGUIRRE MD Common Visit Codes: NOT BILLABLE FILIBERTO AGUIRRE MD Mar 28, 2024 13:37
[2024-03-28 13:58] LABS: Urine Blood TRACE /uL (Negative); Urine Clarity Clear (Clear); Urine Color Light-Yellow (Yellow); Urine Protein, UAD Negative (Negative); Urine Specific Gravity 1.018 (1.001-1.035); Urine Urobilinogen Normal (Negative); Urine WBC <1 /hpf (0 - 5)
[2024-03-28] MEDS: ASPirin 81 mg TAB PO ONE (17:53)
[2024-03-29] VITALS (8 sets, daily range): BP systolic 120–154; BP diastolic 46–82; PULSE 55–86; RESP 12–18; TEMP 97.8–98.5; O2SAT 94–98
[2024-03-29] MEDS: ASPirin 81 mg TAB PO SCH (10:17)
--- NOTE | 2024-03-29 11:26 | DVHPN2 ---
Subjective The patient seen and examined at bedside. Still complaint of headache. Reviewed: Care Plan, H&P, Labs, Medications, Previous Orders, Radiology Changes from previous H/P or p: No Changes Eyes: No Pain, No Vision change, No Conjunctivae inflammation, No Eyelid inflammation, No Other, No Redness ENT: No Ear pain, No Ear discharge, No Nose pain, No Nose discharge, No Nose congestion, No Mouth pain, No Mouth swelling, No Throat pain, No Throat swelling, No Other Cardiovascular: No Chest Pain, No Palpitations, No Orthopnea, No Paroxysmal Noc. Dyspnea, No Edema, No Lt Headedness, No Other Respiratory: No Cough, No Dry, No Shortness of breath, No SOB with excertion, No Wheezing, No Hemoptysis, No Pleuritic Pain, No Sputum, No Other Gastrointestinal: No Nausea, No Vomiting, No Abdominal Pain, No Diarrhea, No Constipation, No Melena, No Hematochezia, No Other Genitourinary: No Dysuria, No Frequency, No Incontinence, No Hematuria, No Retention, No Other Musculoskeletal: No other, No neck pain, No shoulder pain, No arm pain, No back pain, No hand pain, No leg pain, No foot pain Skin: No Rash, No Lesions, No Jaundice, No Bruising, No Other Objective Vitals Vital Signs Date Time Temp Pulse Resp B/P (MAP) Pulse Ox O2 Delivery O2 Flow Rate FiO2 03/29/24 10:19 146/60 03/29/24 09:00 98.5 68 16 94 98.5 03/28/24 20:00 Room Air* 0 21 Intake/Output Intake and Output 03/29/24 07:00 Intake Total 750 ml Output Total 0 ml Balance 750 ml Intake Oral 700 ml IV Total 50 ml Output Stool Total 0 ml # Voids 5 # Bowel Movements 1 General Appearance: Alert Lungs: Clear to auscultation, Normal air movement Cardiovascular: Regular rate, Normal S1, Normal S2, Other (systolic murmur) Abdomen: Normal bowel sounds, Soft, No tenderness Extremities: No edema Medications Current Medications Medications Dose Ordered Sig/Tariq Route Start Time Stop Time Status Last Admin Dose Admin Furosemide 20 mg DAILY PO 03/28/24 10:00 03/29/24 10:18 20 MG Oxybutynin Chloride 5 mg DAILY PO 03/28/24 10:00 03/29/24 10:18 5 MG Metoclopramide HCl 5 mg AC PO 03/27/24 17:00 03/29/24 05:35 5 MG Metoprolol Succinate 25 mg HS PO 03/27/24 22:00 03/28/24 21:28 25 MG Pantoprazole Sodium 40 mg DAILY@BREAKFAST PO 03/28/24 08:00 03/29/24 10:17 40 MG Apixaban 5 mg BID PO 03/27/24 22:00 03/29/24 10:18 5 MG Atorvastatin Calcium 40 mg HS PO 03/27/24 22:00 03/28/24 21:16 40 MG Acetaminophen 650 mg Q6HP PRN PO 03/27/24 16:30 03/29/24 10:24 650 MG Zolpidem Tartrate 5 mg QHSP PRN PO 03/27/24 16:30 Lorazepam 0.5 mg Q6HP PRN PO 03/27/24 16:30 03/27/24 16:51 0.5 MG Docusate Sodium 100 mg DAILY PO 03/28/24 10:00 03/29/24 10:18 100 MG Ondansetron HCl 4 mg Q4HP PRN IV 03/27/24 16:30 Lisinopril 10 mg DAILY PO 03/28/24 10:00 03/29/24 10:19 10 MG Ceftriaxone Sodium 50 ml @ 100 mls/hr DAILY@09 IV 03/28/24 09:00 03/29/24 10:17 100 MLS/HR Aspirin 81 mg DAILY PO 03/29/24 10:00 03/29/24 10:17 81 MG Laboratory Results Laboratory Tests 03/27/24 15:36 03/28/24 05:19 Urinalysis Test 03/28/24 06:40 Urine Color Light-yellow (Yellow) Urine Clarity Clear (Clear) Urine pH 6.0 (5.0-9.0) Urine Specific [place] 1.018 (1.001-1.035) Urine Protein Negative (Negative) Urine Ketones Trace (Negative) Urine Blood Trace /uL (Negative) H Urine Nitrite Negative (Negative) Urine Bilirubin Negative (Negative) Urine Urobilinogen Normal mg/dL (Negative) Urine Leukocyte Esterase Negative /uL (Negative) Urine RBC 3 /hpf (0 - 4) Urine WBC <1 /hpf (0 - 5) Urine Squamous Epithelial Cells None seen /hpf (<5) Urine Bacteria None seen /hpf (None Seen) Urine Glucose Normal mg/dL (Normal) Labs and/or images reviewed: Labs reviewed by me Assessment/Plan Assessment/Plan Headache Rule out stroke HTN h/o breast CA LLE DVT on Eliquis h/o diverticulosis h/o colostomy and reversal many years ago UTI PLAN: Continuing aspirin. Waiting for MRI of brain to be done. We will follow up with 2D echo. So far the carotid ultrasound is negative for stenosis. Continuing with Eliquis per home dose. Continuing IV antibiotic with Rocephin. Plan discussed with: Patient, Other (Caregiver at bedside) Date of Service: Mar 29, 2024 Billing Provider: MAHI WILSON MD Common Visit Codes: [id number] INP/OBS CARE(HIGH) MAHI WILSON MD Mar 29, 2024 11:26
[2024-03-29] MEDS: IBUPROFEN 400 MG TAB PO PRN (13:56)
[2024-03-30 01:00] VITALS: BP 142/55; PULSE 69; RESP 18; TEMP 98.4; O2SAT 92
[2024-03-30 05:00] VITALS: BP 146/75; PULSE 77; RESP 18; TEMP 98.2; O2SAT 94
[2024-03-30 09:00] VITALS: BP 147/69; PULSE 94; RESP 18; TEMP 98.1; O2SAT 95
--- NOTE | 2024-03-30 10:11 | DVHSR ---
APPROVED REPORT EXAM: Two-dimensional and M-mode echocardiogram with Doppler and color Doppler. Blood Pressure: 131/58 mmHg INDICATION stroke DIMENSIONS LVDd3.8 (3.8-5.7cm)LA (2D)4.1 (1.9-4.0cm)Aortic Root2.8 (2.0-3.7cm) LVDs2.6 (2.5-4.0cm)LA (MM) (1.9-4.0cm)Aortic Cusp Exc1.0 (1.5-2.0cm) EF (%) 63.1 (55-70%)Rt. Atrium3.2 (1.9-4.0cm)Asc. Aorta cm IVSd1.3 (0.7-1.1cm)RV (D)2.4 (1.8-2.4cm) PWd1.1 (0.7-1.1cm) Mitral Valve MitralMitral Stenosis E wave0.73m/sMV Mean GR.mmHg A wave1.43m/sMV Peak GR.29mmHg E/A ratio0.52D MVAcm2 DECEL [id number] 1/2 Timems Aortic Valve Aortic ValveAortic Stenosis V11.04m/Jeremy Mean GR.10mmHg V22.33m/Jeremy Peak GR.22mmHg Pulmonic Valve V20.72m/s Tricuspid Valve TR Velocity2.25m/s [id number] Other Information Technically limited study due to body habitus. Conclusion lvef 60% by visual estimate moderate LVH noted severly calcified aortic valve with resricted motion, grandient is 10 mmgh consistent with mild to mo derate left atrium enlarged
[2024-03-30 13:00] VITALS: BP 103/52; PULSE 69; RESP 18; TEMP 97.7; O2SAT 94
--- NOTE | 2024-03-30 13:30 | DVHPN2 ---
Subjective The patient is seen and examined at bedside. The headache improved. Waiting for MRI to be done today hopefully. Reviewed: Care Plan, H&P, Labs, Medications, Previous Orders, Radiology Changes from previous H/P or p: No Changes Eyes: No Pain, No Vision change, No Conjunctivae inflammation, No Eyelid inflammation, No Other, No Redness ENT: No Ear pain, No Ear discharge, No Nose pain, No Nose discharge, No Nose congestion, No Mouth pain, No Mouth swelling, No Throat pain, No Throat swelling, No Other Cardiovascular: No Chest Pain, No Palpitations, No Orthopnea, No Paroxysmal Noc. Dyspnea, No Edema, No Lt Headedness, No Other Respiratory: No Cough, No Dry, No Shortness of breath, No SOB with excertion, No Wheezing, No Hemoptysis, No Pleuritic Pain, No Sputum, No Other Gastrointestinal: No Nausea, No Vomiting, No Abdominal Pain, No Diarrhea, No Constipation, No Melena, No Hematochezia, No Other Genitourinary: No Dysuria, No Frequency, No Incontinence, No Hematuria, No Retention, No Other Musculoskeletal: No other, No neck pain, No shoulder pain, No arm pain, No back pain, No hand pain, No leg pain, No foot pain Skin: No Rash, No Lesions, No Jaundice, No Bruising, No Other Objective Vitals Vital Signs Date Time Temp Pulse Resp B/P (MAP) Pulse Ox O2 Delivery O2 Flow Rate FiO2 03/30/24 10:14 142/56 03/30/24 09:00 98.1 94 18 95 98.1 03/30/24 08:12 Room Air* 0 21 Intake/Output Intake and Output 03/30/24 06:59 Intake Total 1774 ml Output Total 6 ml Balance 1768 ml Intake Oral 1724 ml IV Total 50 ml Output Urine Total 6 ml # Voids 1 General Appearance: Alert HEENT: Atraumatic, PERRLA, EOMI, Mucous membr. moist/pink Lungs: Clear to auscultation, Normal air movement Cardiovascular: Regular rate, Normal S1, Normal S2, Other (systolic murmur) Abdomen: Normal bowel sounds, Soft, No tenderness Extremities: No edema Medications Current Medications Medications Dose Ordered Sig/Tariq Route Start Time Stop Time Status Last Admin Dose Admin Furosemide 20 mg DAILY PO 03/28/24 10:00 03/30/24 10:13 20 MG Oxybutynin Chloride 5 mg DAILY PO 03/28/24 10:00 03/30/24 10:13 5 MG Metoclopramide HCl 5 mg AC PO 03/27/24 17:00 03/30/24 10:16 5 MG Metoprolol Succinate 25 mg HS PO 03/27/24 22:00 03/29/24 21:31 25 MG Pantoprazole Sodium 40 mg DAILY@BREAKFAST PO 03/28/24 08:00 03/30/24 08:53 40 MG Apixaban 5 mg BID PO 03/27/24 22:00 03/30/24 10:14 5 MG Atorvastatin Calcium 40 mg HS PO 03/27/24 22:00 03/29/24 21:37 40 MG Acetaminophen 650 mg Q6HP PRN PO 03/27/24 16:30 03/29/24 10:24 650 MG Zolpidem Tartrate 5 mg QHSP PRN PO 03/27/24 16:30 Lorazepam 0.5 mg Q6HP PRN PO 03/27/24 16:30 03/27/24 16:51 0.5 MG Docusate Sodium 100 mg DAILY PO 03/28/24 10:00 03/30/24 10:13 100 MG Ondansetron HCl 4 mg Q4HP PRN IV 03/27/24 16:30 Lisinopril 10 mg DAILY PO 03/28/24 10:00 03/30/24 10:14 10 MG Ceftriaxone Sodium 50 ml @ 100 mls/hr DAILY@09 IV 03/28/24 09:00 03/30/24 08:54 100 MLS/HR Aspirin 81 mg DAILY PO 03/29/24 10:00 03/30/24 10:14 81 MG Ibuprofen 400 mg Q8HP PRN PO 03/29/24 12:30 03/30/24 10:16 400 MG Laboratory Results Laboratory Tests 03/27/24 15:36 03/28/24 05:19 Urinalysis Test 03/28/24 06:40 Urine Color Light-yellow (Yellow) Urine Clarity Clear (Clear) Urine pH 6.0 (5.0-9.0) Urine Specific [place] 1.018 (1.001-1.035) Urine Protein Negative (Negative) Urine Ketones Trace (Negative) Urine Blood Trace /uL (Negative) H Urine Nitrite Negative (Negative) Urine Bilirubin Negative (Negative) Urine Urobilinogen Normal mg/dL (Negative) Urine Leukocyte Esterase Negative /uL (Negative) Urine RBC 3 /hpf (0 - 4) Urine WBC <1 /hpf (0 - 5) Urine Squamous Epithelial Cells None seen /hpf (<5) Urine Bacteria None seen /hpf (None Seen) Urine Glucose Normal mg/dL (Normal) Labs and/or images reviewed: Labs reviewed by me Assessment/Plan Assessment/Plan Headache Rule out stroke HTN h/o breast CA LLE DVT on Eliquis h/o diverticulosis h/o colostomy and reversal many years ago UTI PLAN: Continuing aspirin. Waiting for MRI of brain to be done. 2D echo showed: lvef 60% by visual estimate moderate LVH noted ,severly calcified aortic valve with resricted motion, grandient is 10 mmgh consistent with mild to moderate left atrium enlarged So far the carotid ultrasound is negative for stenosis. Continuing with Eliquis per home dose. Continuing IV antibiotic with Rocephin. Plan discussed with: Patient Date of Service: Mar 30, 2024 Billing Provider: MAHI WILSON MD Common Visit Codes: [id number] INP/OBS CARE(HIGH) MAHI WILSON MD Mar 30, 2024 13:30
--- NOTE | 2024-03-30 16:55 | DVH ---
EXAM: MRI BRAIN HEAD WO CONTRAST CLINICAL HISTORY: stroke COMPARISON: CT HEAD WITHOUT CONTRAST on DOS: 03/27/24 TECHNIQUE: Multiplanar, multisequence magnetic resonance imaging of the brain was performed without contrast. FINDINGS: Moderate diffuse brain atrophy. Moderate chronic small-vessel ischemic changes. The hypodense focus over the left inferior basal ganglia appears to represent chronic lacunar infarct versus prominent perivascular space with the anterior thalamic hypodense focus representing chronic lacunar infarct. No hemorrhages, masses, mass effect, midline shift, herniation or cytotoxic edema following a large v ascular territory. No intra-axial or extra-axial fluid collections. No evidence of hydrocephalus. The basal cisterns are patent. The visualized vascular flow voids are maintained. The pituitary gland, sella parasellar regions are unremarkable. The cerebellar tonsils are in normal position. The cerebellum is unremarkable. There is bilateral lens replacement. Otherwise orbits and globes are unremarkable. Mild mucoperioste al thickening of the ethmoid air cells with mucous retention cyst within the right maxillary sinus. T he remainder of the paranasal sinuses and mastoids are clear. There are no worrisome calvarial lesio ns. IMPRESSION: No evidence of acute intracranial abnormalities.
[2024-03-30 17:00] VITALS: BP 127/66; PULSE 82; RESP 18; TEMP 97.7; O2SAT 96
[2024-03-30 21:00] VITALS: BP 133/62; PULSE 91; RESP 16; TEMP 97.9; O2SAT 98
[2024-03-31 01:00] VITALS: BP 152/67; PULSE 76; RESP 16; TEMP 98; O2SAT 96
[2024-03-31 05:00] VITALS: BP 125/49; PULSE 68; RESP 16; TEMP 97.6; O2SAT 94
[2024-03-31 08:00] VITALS: PULSE 80; RESP 18; O2SAT 92
--- NOTE | 2024-03-31 08:14 | DVHDS2 ---
Discharge Summary Date of Admission Mar 27, 2024 at 16:18 Date of Discharge: Mar 31, 2024 Admitting Diagnosis Headache Rule out stroke HTN h/o breast CA LLE DVT on Eliquis h/o diverticulosis h/o colostomy and reversal many years ago UTI Labs/Diagnostic Data: Laboratory Results Test 03/29/24 12:30 03/28/24 06:40 03/28/24 05:19 03/27/24 15:36 Magnesium Level 2.0 mg/dL (1.6-2.6) Urine Color Light-yellow (Yellow) Urine Clarity Clear (Clear) Urine pH 6.0 (5.0-9.0) Urine Specific [place] 1.018 (1.001-1.035) Urine Protein Negative (Negative) Urine Ketones Trace (Negative) Urine Blood Trace /uL (Negative) Urine Nitrite Negative (Negative) Urine Bilirubin Negative (Negative) Urine Urobilinogen Normal mg/dL (Negative) Urine Leukocyte Esterase Negative /uL (Negative) Urine RBC 3 /hpf (0 - 4) Urine WBC <1 /hpf (0 - 5) Urine Squamous Epithelial Cells None seen /hpf (<5) Urine Bacteria None seen /hpf (None Seen) Urine Glucose Normal mg/dL (Normal) Sodium Level 143 mmol/L (136-145) Potassium Level 3.7 mmol/L (3.5-5.1) Chloride Level 107 mmol/L (98-107) Carbon Dioxide Level 29 mmol/L (20-31) Anion Gap 7 (5-15) Blood Urea Nitrogen 18 mg/dL (9-23) Creatinine 0.74 mg/dL (0.550-1.02) Glomerular Filtration Rate Calc 77 mL/min (>90) BUN/Creatinine Ratio 24.3 (10.0-20.0) Serum Glucose 86 mg/dL (74-106) Calcium Level 8.9 mg/dL (8.7-10.4) White Blood Count 14.5 10^3/uL (4.4-10.8) Red Blood Count 5.01 10^6/uL (4.0-5.20) Hemoglobin 13.4 g/dL (12.2-16.2) Hematocrit 40.5 % (36.0-46.0) Mean Corpuscular Volume 80.8 fL (80.0-100.0) Mean Corpuscular Hemoglobin 26.8 pg (28.0-32.0) Mean Corpuscular Hemoglobin Concent 33.1 g/dL (32.0-36.0) Red Cell Distribution Width 15.8 % (11.8-14.3) Platelet Count 279 10^3/uL (140-450) Mean Platelet Volume 8.2 fL (6.9-10.8) Neutrophils (%) (Auto) 81.7 % (37.0-80.0) Lymphocytes (%) (Auto) 4.4 % (10.0-50.0) Monocytes (%) (Auto) 13.0 % (0.0-12.0) Eosinophils (%) (Auto) 0.4 % (0.0-7.0) Basophils (%) (Auto) 0.5 % (0.0-2.0) Neutrophils # (Auto) 11.8 10 ^3/uL (1.6-8.6) Lymphocytes # (Auto) 0.6 10 ^3/uL (0.4-5.4) Monocytes # (Auto) 1.9 10 ^3/uL (0-1.3) Eosinophils # (Auto) 0.1 10 ^3/uL (0-0.8) Basophils # (Auto) 0.1 10 ^3/uL (0-0.2) Nucleated Red Blood Cells 0.0 % Troponin I High Sensitivity 6 ng/L (</=34) Other Laboratory Tests 03/28/24 05:19 03/27/24 15:36 Brief Hx & Hospital Course: This is an 88 years old female with past medical history of breast cancer, hypertension, diverticulitis came to emergency department because of severe headache. The patient describes her headache is 10/10 and is lasts for one week. That is why she decided to come to emergency department for further evaluation. The patient said in the past she might have TIA and take Eliquis. The patient was admitted. [employer] Manager CT scan of the head showed no abnormality. Echo showed normal EF of 60% with severe aortic calcification secondary to mild to moderate aortic stenosis. Ultrasound carotid bilateral is negative for stenosis. MRI of the brain showed: The hypodense focus over the left inferior basal ganglia appears to represent chronic lacunar infarct versus prominent perivascular space with the anterior thalamic hypodense focus representing chronic lacunar infarct. No acute intracranial abnormality. The patient headache is improved. The patient also was found to have urinary tract infection and was treated with Rocephin 1 g IV q.day. today the patient ambulate. No headache. I am going to discharge her home. Advised her to follow up with primary care physician 1-2 weeks. Activity as tolerated. Diet per home diet. Recommend low-salt low-cholesterol diet. Physical exam: HEENT: Normocephalic atraumatic pupils equal react to light and accommodation. Extraocular muscles intact, conjunctiva pink, oropharynx moist, no thrush, no exudate. Lymphatic: No lymphadenopathy Cardiovascular exam: S1, S2 was heard. No murmurs, rubs, gallops Lung: Clear on auscultation bilaterally, no wheeze, rale, rhonchi. GI: Abdominal soft, nondistended, nontenderness, positive bowel sounds. Extremity: No crepitus, cyanosis, edema. Pedal pulses present bilateral. Full range of motion. Skin: Normal turgor, no rash. Psych: Alert, oriented x3. Neurology: No focal deficits, cranial nerve II to XII grossly intact. This medical document was created using an electronic medical record system with [employer] direct computerized dictation system. Although this document has been carefully reviewed, there may still be some phonetic and typographical errors. These areas are purely typographical due to imperfections of the software programs, and do not reflect any compromise in the patient's medical care. Condition at Discharge: Stable Final Diagnosis/Problems List Headache Rule out acute stroke. The patient does have chronic lacunar infarct per MRI of brain HTN h/o breast CA LLE DVT on Eliquis h/o diverticulosis h/o colostomy and reversal many years ago UTI Discharge Disposition: Home Discharge Statement: "Patient was advised to return to the ER or call 911 if any headaches, dizziness, shortness of breath, chest pain, abdominal pain, bleeding, fevers, or worsening of medical condition. Patient was counseled about treatment plan, medications, possible side effects, patientverbalized understanding. All questions were answered to the best of my ability. This discharge took greater then 30 minutes in planning, reviewing documentation, counseling the patient, and discussing with other team members." ASSESSMENT ASSESSMENT Assessment Date of Service: Mar 31, 2024 Billing Provider: MAHI WILSON MD Common Visit Codes: [id number] DISCH DAY >30min MAHI WILSON MD Mar 31, 2024 08:14
[2024-03-31 09:00] VITALS: BP 145/71; PULSE 80; RESP 18; TEMP 98.1; O2SAT 92
[2024-03-31 13:00] VITALS: BP 149/75; PULSE 83; RESP 20; TEMP 98.3; O2SAT 95
== END 2024-03-31 14:15 | disposition home or self-care (01) | DRG 69 ==
LOC: ER 14:34 → OVERFLOW 16:18 → CENTRAL 03-28 13:00
PROVIDERS: ADMIT Hospitalist; ATTEND Internal Medicine
DX: G45.9 Transient cerebral ischemic attack, unspecified (principal); N39.0 Urinary tract infection, site not specified; I10 Essential (primary) hypertension; J44.9 Chronic obstructive pulmonary disease, unspecified; Z85.3 Personal history of malignant neoplasm of breast; Z90.710 Acquired absence of both cervix and uterus; Z90.11 Acquired absence of right breast and nipple; Z79.01 Long term (current) use of anticoagulants; Z79.899 Other long term (current) drug therapy; I35.0 Nonrheumatic aortic (valve) stenosis; I70.0 Atherosclerosis of aorta
CPT/HCPCS: 36415; 70450; 70551; 80048; 81001; 83735; 84484; 85025; 93306; 93886; 99291; G0378